=== PATIENT | female | born 1975 | race Caucasian/White ===

== ENCOUNTER 2016-09-29 16:12 | Emergency (ER) | payer OTHER ==
[~2016-09-29] VITALS: Ht 160 cm; Wt 70.3 kg
[2016-09-29 16:16] VITALS: BP 103/39
--- NOTE | 2016-09-29 17:11 | NUR ---
PATIENT AMBULATED TO BED 3 AT THIS TIME.
--- NOTE | 2016-09-29 17:18 | NUR ---
PATIENT PRESENTS TO ED WITH RASH . PT STATES THE RASH STARTED 2 WEEKS AGO AFTER USING NEW MEDICATION . DENIES N/V/D; RASH NOTED TO GÓMEZ UPPER AND LOWER EXTREMITIES, TRUNK AND BACK; AAOX4 WITH EVEN AND STEADY GAIT; LUNGS CLEAR BL; HR EVEN AND REGULAR; PT DENIES ANY FEVER, CP, SOB, OR COUGH AT THIS TIME; PATIENT STATES PAIN OF 0/10 AT THIS TIME; VSS; PATIENT POSITIONED FOR COMFORT; HOB ELEVATED; BEDRAILS UP X2; BED DOWN. ER MD MADE AWARE OF PT STATUS.
--- NOTE | 2016-09-29 18:00 | NUR ---
[place] AT BEDSIDE.
--- NOTE | 2016-09-29 18:28 | NUR ---
PT RESTING QUIETLY ON GURTHENDARA.
--- NOTE | 2016-09-29 19:13 | NUR ---
Pt report given to JESSICA CORREA. Transfer of care at this time.
[2016-09-29 19:24] VITALS: BP 109/70
--- NOTE | 2016-09-29 19:24 | NUR ---
Patient discharged with v/s stable. Written and verbal after care instructions given and explained. Patient alert, oriented and verbalized understanding of instructions. Ambulatory with steady gait. All questions addressed prior to discharge. ID band removed. Patient advised to follow up with PMD IN 1 WK OR RETURN TO ER IF CONDITION WORSENS. Rx of PREDNISONE given. Patient educated on indication of medication including possible reaction and side effects. Opportunity to ask questions provided and answered.
== END 2016-09-29 19:24 | disposition home or self-care (01) ==
LOC: MED 16:12
DX: R21 Rash and other nonspecific skin eruption (principal); Z88.8 Allergy status to other drugs, medicaments and biological substances

== ENCOUNTER 2017-03-02 21:57 | Emergency (ER) | payer OTHER ==
[~2017-03-02] VITALS: Ht 157.5 cm; Wt 73.5 kg
[2017-03-02 22:13] VITALS: BP 110/64
--- NOTE | 2017-03-02 23:58 | NUR ---
Patient taken to bed 07 via wheelchair per EMT.
--- NOTE | 2017-03-03 00:11 | NUR ---
WENT FOR ABDOMINAL SERIES VIA WHEELCHAIR.
--- NOTE | 2017-03-03 00:22 | NUR ---
Patient back from XRAY via wheelchair per tech.
--- NOTE | 2017-03-03 00:46 | NUR ---
Dr. Muhammad evaluating patient at bedside.
[2017-03-03] MEDS ORDERED: MORPHINE SULFATE 2 MG/ML SYR IM ONE (01:15)
[2017-03-03] MEDS ORDERED: MORPHINE SULFATE 4 MG/ML SYR IVP ONE (01:15)
[2017-03-03] MEDS ORDERED: ONDANSETRON 4 MG/2 ML VIAL IM ONE (01:15)
--- NOTE | 2017-03-03 01:47 | NUR ---
MORPHINE 2 MG IM AND ZOFRAN 4 MG IM GIVEN ORDERED.
--- NOTE | 2017-03-03 02:12 | NUR ---
DISCHARGED STABLE AND IMPROVED. PRESCRIPTIONS,VERBAL AND WRITTEN AFTERCARE INSTRUCTIONS GIVEN. VERBALIZED UNDERSTANDING.
[2017-03-03 02:21] VITALS: BP 115/65
== END 2017-03-03 02:12 | disposition home or self-care (01) ==
LOC: MED 21:57
DX: R10.31 Right lower quadrant pain (principal); R11.2 Nausea with vomiting, unspecified; R63.0 Anorexia; Z88.8 Allergy status to other drugs, medicaments and biological substances
CPT/HCPCS: 74022; 81002; 81025; 96372; 99284; J2270; J2405

== ENCOUNTER 2021-02-07 09:11 | Emergency (ER) | payer MEDICAID, OTHER ==
[~2021-02-07] VITALS: Ht 160 cm; Wt 62.6 kg
[2021-02-07 09:21] VITALS: BP 107/74
--- NOTE | 2021-02-07 09:30 | NUR ---
Patient ambulated to bed 03 with steady/even gait.
--- NOTE | 2021-02-07 09:40 | NUR ---
45 y/o female C/O RASH X3 DAYS and LLQ pain x 2 days. +Bloating, states 6/10, dull/intermittent, radiating to suprapubic region. States pain worsens while lifting up left leg. HR 105. Denies nausea, vomiting, diarrhea, fever, chills. Ibuprofen 800mg last dose 5PM yesterday with minor relief. MEDHx: Uterine cancer ALLERGIES: TERBINAFINE
--- NOTE | 2021-02-07 09:43 | NUR ---
DR COLLINS AT BEDSIDE EXAMINING PT
[2021-02-07] MEDS ORDERED: diphenhydrAMINE 50 MG/ML VIAL IVP ONE (09:45)
[2021-02-07] MEDS ORDERED: KETOROLAC 30 MG/ML VIAL IVP ONE (09:45)
[2021-02-07] MEDS ORDERED: NACL 0.9% 1,000 ML IV ONE (09:45)
[2021-02-07 10:04] LABS: BASOPHILS % (AUTO) 0.1 % (0.0-2.0); EOSINOPHILS % (AUTO) 0.1 % (0.0-4.0); HEMATOCRIT 38.7 % (36-48); HEMOGLOBIN 13.2 g/dL (12.0-16.0); LYMPHOCYTES # (AUTO) 0.8 K/uL (2.5-16.5); LYMPHOCYTES % (AUTO) 9.1 % (20.5-51.1); MEAN CORPUSCULAR HEMOGLOBIN 31 pg (27-31); MEAN CORPUSCULAR HGB CONC 34 g/dL (33-37); MEAN CORPUSCULAR VOLUME 90.9 fL (80-94); MONOCYTES # (AUTO) 0.6 K/uL (0.8-1.0); NEUTROPHILS # (AUTO) 7.5 K/uL (1.8-7.7); NEUTROPHILS % (AUTO) 83.7 % (42.2-75.2); PLATELET COUNT (AUTO) 142 K/uL (140-450); RED BLOOD CELL COUNT(AUTO) 4.26 MIL/uL (4.20-5.40); RED CELL DISTRIBUTION WIDTH 13.7 % (11.6-13.7)
[2021-02-07 10:20] LABS: ALBUMIN 4.2 g/dL (3.4-5.0); ANION GAP 14.9 (8-16); CARBON DIOXIDE 24.6 mmol/L (21-32); POTASSIUM 3.5 mmol/L (3.5-5.1); TOTAL BILIRUBIN 0.4 mg/dL (0.0-1.0)
--- NOTE | 2021-02-07 10:25 | NUR ---
PT TAKEN TO CT SCAN VIA ALYSIA
--- NOTE | 2021-02-07 10:37 | NUR ---
PT RETURNED FROM CT SCAN
[2021-02-07 10:51] LABS: APPEARANCE,URINE CLEAR (CLEAR); BILIRUBIN,URINE NEGATIVE (NEGATIVE); BLOOD, URINE 2+ (NEGATIVE); COLOR,URINE YELLOW (YELLOW); LEUKOCYTE ESTERASE ,URINE NEGATIVE (NEGATIVE); NITRITE, URINE NEGATIVE (NEGATIVE); PH,URINE 7.5 (5.0-9.0); UGLUCOSE NEGATIVE (NEGATIVE)
[2021-02-07 11:03] LABS: RBC,URINE 0-5 /HPF (0-5); WBC,URINE 0-5 /HPF (0-5)
[2021-02-07] MEDS ORDERED: IBUP-2213 PO (11:46)
[2021-02-07] MEDS ORDERED: ACET-10509 PO (11:46)
--- NOTE | 2021-02-07 11:55 | NUR ---
IV removed, catheter intact and site benign. Applied folded 4x4 gauze and tape to stop bleeding.
[2021-02-07 12:00] VITALS: BP 109/69
--- NOTE | 2021-02-07 12:00 | NUR ---
Patient discharged with v/s stable. Written and verbal after care instructions given and explained. Patient alert, oriented and verbalized understanding of instructions. Ambulatory with steady gait. All questions addressed prior to discharge. ID band removed. Patient advised to follow up with PMD. Rx of Ibuprofen and Acetaminophen given. Patient educated on indication of medication including possible reaction and side effects. Opportunity to ask questions provided and answered.
== END 2021-02-07 12:00 | disposition home or self-care (01) ==
LOC: MED 09:11
DX: N83.202 Unspecified ovarian cyst, left side (principal); R21 Rash and other nonspecific skin eruption; Z88.8 Allergy status to other drugs, medicaments and biological substances
CPT/HCPCS: 36415; 74176; 80053; 81001; 81025; 83690; 85025; 96361; 96374; 96375; 99284; J1200; J1885; J7030

== ENCOUNTER 2021-03-03 16:52 | Emergency (ER) | payer OTHER ==
[~2021-03-03] VITALS: Ht 160 cm; Wt 61.2 kg
[~2021-03-03 16:52] MED LIST: ACET-10509 PO; IBUP-2213 PO
[2021-03-03 16:54] VITALS: BP 130/72
[2021-03-03] MEDS ORDERED: IBUPROFEN 600 MG TAB PO ONE (17:30)
--- NOTE | 2021-03-03 17:58 | NUR ---
45 YEAR OLD FEMALE COMPLAINS OF LOWER BACK PAIN X 2 DAYS. PT STATES NOW HAS HEMATURIA, NAUSEA, VOMITTING. PT AOX4, BREATHING EVEN AND UNLABORED, SKIN WARM AND DRY. BED IN LOWEST POSITION, LOCKED, BED RAIL UPX1. PMH - UTERUS CANCER ALLERGIES - NKA
[2021-03-03] MEDS ORDERED: NACL 0.9% 1,000 ML IV ONE (18:15)
[2021-03-03] MEDS ORDERED: cefTRIAXone 1,000 MG VIAL ONE (18:20)
[2021-03-03 18:38] LABS: BASOPHILS % (AUTO) 0.1 % (0.0-2.0); EOSINOPHILS % (AUTO) 0.2 % (0.0-4.0); HEMATOCRIT 41.1 % (36-48); HEMOGLOBIN 13.9 g/dL (12.0-16.0); LYMPHOCYTES # (AUTO) 0.4 K/uL (2.5-16.5); LYMPHOCYTES % (AUTO) 6.1 % (20.5-51.1); MEAN CORPUSCULAR HEMOGLOBIN 31 pg (27-31); MEAN CORPUSCULAR HGB CONC 34 g/dL (33-37); MEAN CORPUSCULAR VOLUME 90.7 fL (80-94); MONOCYTES # (AUTO) 0.3 K/uL (0.8-1.0); MONOCYTES % (AUTO) 5.1 % (1.7-9.3); NEUTROPHILS # (AUTO) 5.5 K/uL (1.8-7.7); NEUTROPHILS % (AUTO) 88.5 % (42.2-75.2); PLATELET COUNT (AUTO) 141 K/uL (140-450); RED BLOOD CELL COUNT(AUTO) 4.53 MIL/uL (4.20-5.40); WHITE BLOOD COUNT (AUTO) 6.2 K/uL (4.8-10.8)
[2021-03-03] MEDS ORDERED: CEPH-588 PO (18:55)
[2021-03-03 19:00] LABS: APPEARANCE,URINE CLEAR (CLEAR); BILIRUBIN,URINE NEGATIVE (NEGATIVE); BLOOD, URINE 3+ (NEGATIVE); COLOR,URINE YELLOW (YELLOW); LEUKOCYTE ESTERASE ,URINE 3+ (NEGATIVE); NITRITE, URINE POSITIVE (NEGATIVE); UGLUCOSE NEGATIVE (NEGATIVE)
[2021-03-03 19:09] VITALS: BP 127/71
--- NOTE | 2021-03-03 19:09 | NUR ---
Patient discharged with v/s stable. Written and verbal after care instructions about pyelonephritis given and explained. Patient alert, oriented and verbalized understanding of instructions. Ambulatory with steady gait. All questions addressed prior to discharge. ID band removed. Patient advised to follow up with PMD. Rx of keflex given. Patient educated on indication of medication including possible reaction and side effects. Opportunity to ask questions provided and answered.
[2021-03-03 19:23] LABS: RBC,URINE 11-20 (MOD) /HPF (0-5)
[2021-03-03 19:24] LABS: WBC,URINE 60-80 /HPF (0-5)
== END 2021-03-03 19:09 | disposition home or self-care (01) ==
LOC: MED 16:52
DX: N12 Tubulo-interstitial nephritis, not specified as acute or chronic (principal); Z20.822 Contact with and (suspected) exposure to COVID-19
CPT/HCPCS: 36415; 81001; 84702; 85025; 87086; 87426; 96365; 99284; J0696; J7030

== ENCOUNTER 2021-07-19 14:46 | Emergency (ER) | payer SELFPAY ==
[~2021-07-19] VITALS: Ht 160 cm; Wt 63.5 kg
[~2021-07-19 14:46] MED LIST changes: +CEPH-588 PO
[2021-07-19 15:31] VITALS: BP 120/76
--- NOTE | 2021-07-19 15:44 | NUR ---
TENT 1
--- NOTE | 2021-07-19 15:46 | NUR ---
BIB FAMILY C/O COUGH, 5/10 PRADO, MID CHEST PAIN , RUNNY NOSE X 2 DAYS. PT STATED SHE HAD SEIZURE X 6 TIMES. LEFT KNEE SHAKING ABOUT 2 MINS X TODAY. COWORKER HAD COVID TESTED POSITIVE. PMH: HYSTERECTOMY.
[2021-07-19 17:01] LABS: BASOPHILS % (AUTO) 0.2 % (0.0-2.0); EOSINOPHILS % (AUTO) 0.3 % (0.0-4.0); HEMOGLOBIN 13.6 g/dL (12.0-16.0); LYMPHOCYTES % (AUTO) 12.4 % (20.5-51.1); MEAN CORPUSCULAR HEMOGLOBIN 30 pg (27-31); MEAN CORPUSCULAR HGB CONC 34 g/dL (33-37); MEAN CORPUSCULAR VOLUME 88.7 fL (80-94); MONOCYTES # (AUTO) 0.6 K/uL (0.8-1.0); MONOCYTES % (AUTO) 8.2 % (1.7-9.3); NEUTROPHILS # (AUTO) 6.2 K/uL (1.8-7.7); NEUTROPHILS % (AUTO) 78.9 % (42.2-75.2); PLATELET COUNT (AUTO) 147 K/uL (140-450); RED BLOOD CELL COUNT(AUTO) 4.51 MIL/uL (4.20-5.40); RED CELL DISTRIBUTION WIDTH 14.1 % (11.6-13.7); WHITE BLOOD COUNT (AUTO) 7.8 K/uL (4.8-10.8)
[2021-07-19 17:16] LABS: ANION GAP 13.4 (8-16); CARBON DIOXIDE 25.4 mmol/L (21-32); CREATININE 0.8 mg/dL (0.6-1.3); POTASSIUM 3.8 mmol/L (3.5-5.1)
[2021-07-19] MEDS ORDERED: PRED20TA5 PO (18:07)
[2021-07-19] MEDS ORDERED: IBUP-2213 PO (18:07)
--- NOTE | 2021-07-19 18:36 | NUR ---
COVID PCR SWAB DONE.
[2021-07-19 18:40] VITALS: BP 120/76
--- NOTE | 2021-07-19 18:40 | NUR ---
Patient discharged with v/s stable. Written and verbal after care instructions given and explained. Patient alert, oriented and verbalized understanding of instructions. Ambulatory with steady gait. All questions addressed prior to discharge. ID band removed. Patient advised to follow up with PMD. Rx of IBUPROFEN, DELTASONE given. Patient educated on indication of medication including possible reaction and side effects. Opportunity to ask questions provided and answered.
== END 2021-07-19 18:40 | disposition home or self-care (01) ==
LOC: MED 14:46
DX: R56.9 Unspecified convulsions (principal); R51.9 Headache, unspecified; R07.9 Chest pain, unspecified; Z20.822 Contact with and (suspected) exposure to COVID-19
CPT/HCPCS: 36415; 70450; 71045; 80048; 81002; 81025; 85025; 93005; 99285; U0003

== ENCOUNTER 2022-01-20 01:30 | Emergency (ER) | payer MEDICAID ==
[~2022-01-20] VITALS: Ht 160 cm; Wt 63.5 kg
[~2022-01-20 01:30] MED LIST changes: +PRED20TA5 PO
[2022-01-20 01:44] VITALS: BP 129/89
--- NOTE | 2022-01-20 02:30 | NUR ---
PT LWBS. NOTIFIED ADMITTING
== END 2022-01-20 02:30 | disposition left against medical advice (07) ==
LOC: MED 01:30
DX: R11.2 Nausea with vomiting, unspecified (principal); Z53.21 Procedure and treatment not carried out due to patient leaving prior to being seen by health care provider